=== PATIENT | male | born 1935 | race Caucasian/White ===

== ENCOUNTER → 2016-12-22 | Outpatient (CLI) | payer OTHER | LOC: KOH-I 09:55 | DX: M25.562 Pain in left knee (principal); M17.12 Unilateral primary osteoarthritis, left knee | CPT/HCPCS: 73564 ==

== ENCOUNTER → 2020-10-28 | Outpatient (CLI) | payer OTHER | LOC: HEART 5 10-02 14:00 | DX: I25.10 Atherosclerotic heart disease of native coronary artery without angina pectoris (principal); I08.8 Other rheumatic multiple valve diseases; R93.1 Abnormal findings on diagnostic imaging of heart and coronary circulation | CPT/HCPCS: 93306 ==

== ENCOUNTER 2021-04-05 08:49 | Emergency (ER) | payer OTHER ==
[2021-04-05 09:10] LABS: HEMOGLOBIN 16.4 gm/dl (14.0-17.5); RED BLOOD COUNT 5.26 M/UL (4.20-5.50); WHITE BLOOD COUNT 5.7 K/UL (4.5-11.0)
[2021-04-05 09:55] LABS: BUN/CREATININE RATIO 25 (0-10)
== END 2021-04-05 13:32 | disposition short-term general hospital (02) ==
LOC: ER1 08:49
PROVIDERS: Student in an Organized Health Care Education/Training Program
DX: I63.231 Cerebral infarction due to unspecified occlusion or stenosis of right carotid arteries (principal); E11.9 Type 2 diabetes mellitus without complications; R53.1 Weakness; Z20.822 Contact with and (suspected) exposure to COVID-19; M19.90 Unspecified osteoarthritis, unspecified site
CPT/HCPCS: 70450; 70496; 70498; 71045; 80053; 81001; 82550; 82553; 83690; 83735; 83874; 84100; 84484; 85025; 85610; 85730; 93005; 96374; 96375; 99285; J2997; Q9967; U0002

== ENCOUNTER → 2021-06-19 | Outpatient (CLI) | payer OTHER ==
[~2021-06-19] MED LIST: ALPRAZOLAM0.5 MG PO; ASPIRIN81 MG PO; ATORVASTATIN CA40 MG PO; AUGMENTIN 875-1 EACH PO; CLOPIDOGREL75 MG PO; FUROSEMIDE40 MG PO; GABAPENTIN300 MG PO; HAWTHORN BERRI565 MG PO; HYDROXYZINE PAM25 MG PO; KLOR-CON M2020 MEQ PO; LANTUS SOL100 UNIT/1 SQ; METOPROLOL TART50 MG PO; MONTELUKAST SOD10 MG PO; TRAMADOL HCL50 MG PO; TURMERIC PO; VOLTAREN ARTHRI20 GM TP
== END ==
LOC: RAD 08:30
DX: I69.391 Dysphagia following cerebral infarction (principal); R13.10 Dysphagia, unspecified
CPT/HCPCS: 74230; 92611-GN

== ENCOUNTER 2021-06-30 06:52 | Inpatient (IN) | payer OTHER ==
[~2021-06-30] VITALS: Ht 175.3 cm; Wt 76.2 kg
[~2021-06-30 06:52] MED LIST changes: -ALPRAZOLAM0.5 MG PO; -ASPIRIN81 MG PO; -ATORVASTATIN CA40 MG PO; -CLOPIDOGREL75 MG PO; -FUROSEMIDE40 MG PO; -GABAPENTIN300 MG PO; -HAWTHORN BERRI565 MG PO; -HYDROXYZINE PAM25 MG PO; -KLOR-CON M2020 MEQ PO; -LANTUS SOL100 UNIT/1 SQ; -METOPROLOL TART50 MG PO; -MONTELUKAST SOD10 MG PO; -TRAMADOL HCL50 MG PO; -TURMERIC PO; -VOLTAREN ARTHRI20 GM TP
[2021-06-30 08:06] LABS: HEMOGLOBIN 17.3 gm/dl (14.0-17.5); RED BLOOD COUNT 6.37 M/UL (4.20-5.50)
[2021-06-30 08:07] LABS: WHITE BLOOD COUNT 32.9 K/UL (4.5-11.0)
[2021-06-30 08:43] LABS: BUN/CREATININE RATIO 36 (0-10)
[2021-06-30] MEDS ORDERED: LANTUS SOL100 UNIT/1 SQ (13:34)
[2021-06-30] MEDS ORDERED: VOLTAREN ARTHRI20 GM TP (13:34)
[2021-06-30] MEDS ORDERED: MONTELUKAST SOD10 MG PO (13:35)
[2021-06-30] MEDS ORDERED: GABAPENTIN300 MG PO (13:36)
[2021-06-30] MEDS ORDERED: ALPRAZOLAM0.5 MG PO (13:36)
[2021-06-30] MEDS ORDERED: METOPROLOL TART50 MG PO (13:36)
[2021-06-30] MEDS ORDERED: CLOPIDOGREL75 MG PO (13:37)
[2021-06-30] MEDS ORDERED: KLOR-CON M2020 MEQ PO (13:37)
[2021-06-30] MEDS ORDERED: ATORVASTATIN CA40 MG PO (13:37)
[2021-06-30] MEDS ORDERED: FUROSEMIDE40 MG PO (13:38)
[2021-06-30] MEDS ORDERED: TRAMADOL HCL50 MG PO (13:38)
[2021-06-30] MEDS ORDERED: HYDROXYZINE PAM25 MG PO (13:39)
[2021-06-30] MEDS ORDERED: HAWTHORN BERRI565 MG PO (13:39)
[2021-06-30] MEDS ORDERED: ASPIRIN81 MG PO (13:39)
[2021-06-30] MEDS ORDERED: TURMERIC PO (13:41)
[2021-07-01 03:32] LABS: HEMOGLOBIN 14.5 gm/dl (14.0-17.5); RED BLOOD COUNT 5.03 M/UL (4.20-5.50); WHITE BLOOD COUNT 32.9 K/UL (4.5-11.0)
[2021-07-01 03:45] LABS: BUN/CREATININE RATIO 37 (0-10)
[2021-07-02 03:00] LABS: RED BLOOD COUNT 4.55 M/UL (4.20-5.50)
[2021-07-02 03:08] LABS: WHITE BLOOD COUNT 23.8 K/UL (4.5-11.0)
[2021-07-02 03:25] LABS: BUN/CREATININE RATIO 43 (0-10)
[2021-07-03 03:41] LABS: HEMOGLOBIN 13.4 gm/dl (14.0-17.5); RED BLOOD COUNT 4.78 M/UL (4.20-5.50)
[2021-07-03 03:42] LABS: WHITE BLOOD COUNT 14.5 K/UL (4.5-11.0)
[2021-07-03 04:09] LABS: BUN/CREATININE RATIO 35 (0-10)
[2021-07-04 02:53] LABS: HEMOGLOBIN 13.3 gm/dl (14.0-17.5); RED BLOOD COUNT 4.73 M/UL (4.20-5.50)
[2021-07-04 02:56] LABS: WHITE BLOOD COUNT 10.1 K/UL (4.5-11.0)
[2021-07-04 03:13] LABS: BUN/CREATININE RATIO 33 (0-10)
[2021-07-05 03:51] LABS: HEMOGLOBIN 12.2 gm/dl (14.0-17.5); RED BLOOD COUNT 4.31 M/UL (4.20-5.50); WHITE BLOOD COUNT 11.6 K/UL (4.5-11.0)
[2021-07-05 04:17] LABS: BUN/CREATININE RATIO 34 (0-10)
[2021-07-06 04:00] LABS: HEMOGLOBIN 12.6 gm/dl (14.0-17.5); RED BLOOD COUNT 4.48 M/UL (4.20-5.50)
[2021-07-06 04:08] LABS: WHITE BLOOD COUNT 8.5 K/UL (4.5-11.0)
[2021-07-06 04:31] LABS: BUN/CREATININE RATIO 30 (0-10)
[2021-07-07 07:08] LABS: HEMOGLOBIN 12.6 gm/dl (14.0-17.5); RED BLOOD COUNT 4.54 M/UL (4.20-5.50); WHITE BLOOD COUNT 4.5 K/UL (4.5-11.0)
[2021-07-07 07:10] LABS: BUN/CREATININE RATIO 27 (0-10)
[2021-07-08 04:35] LABS: BUN/CREATININE RATIO 26 (0-10)
[2021-07-08] MEDS ORDERED: METOPROLOL TART50 MG PO (13:20)
[2021-07-09 06:14] LABS: HEMOGLOBIN 14.3 gm/dl (14.0-17.5); RED BLOOD COUNT 4.99 M/UL (4.20-5.50)
[2021-07-09 06:19] LABS: WHITE BLOOD COUNT 9.5 K/UL (4.5-11.0)
[2021-07-09 06:35] LABS: BUN/CREATININE RATIO 28 (0-10)
--- NOTE | 2021-07-09 10:25 | NUR ---
PATIENT HAS WET COUGH AND LUNG SOUNDS A BIT "JUNKY" AND O2 SATS HAVE BEEN IN THE HIGH 80'S. PROVIDER WAS NOTIFIED AND ORDERED ROBITUSSIN, 2L O2 NASAL CANULA, DUONEBS Q6 PRN. PLACED O2 ON PATIENT. WILL CONTINUE TO MONITOR.
[2021-07-10 07:26] LABS: BUN/CREATININE RATIO 26 (0-10)
--- NOTE | 2021-07-11 00:46 | NUR ---
PATIENT SAT IN MID TO HIGH 80'S ON 7L NC NOTIFIED PROVIDER, PUT ORDERES IN FOR ABG'S. ABG RESULTED IN PATIENT BEING PLACED ON AIRVO AT 50L AND 85%. COVID SWAB WAS ABTAINED AWAITING RESULTS FROM LAB. WILL CONTINUE TO FOLLOW UP.
--- NOTE | 2021-07-11 01:06 | NUR ---
PATIENT COVID SWAB RESULTS ARE POSITIVE
[2021-07-11 07:44] LABS: HEMOGLOBIN 13.3 gm/dl (14.0-17.5); RED BLOOD COUNT 4.87 M/UL (4.20-5.50); WHITE BLOOD COUNT 9.7 K/UL (4.5-11.0)
[2021-07-11 07:55] LABS: BUN/CREATININE RATIO 29 (0-10)
[2021-07-12 05:49] LABS: HEMOGLOBIN 13.7 gm/dl (14.0-17.5); RED BLOOD COUNT 4.93 M/UL (4.20-5.50); WHITE BLOOD COUNT 4.6 K/UL (4.5-11.0)
[2021-07-12 09:14] LABS: BUN/CREATININE RATIO 40 (0-10)
--- NOTE | 2021-07-13 02:42 | NUR ---
patient continuously removes AIRVO, education completed on the importance of oxygenation and keeping AIRVO in place, patient verbalizes understanding
--- NOTE | 2021-07-13 03:21 | NUR ---
PT CONTINUES TO REMOVE AIRVO, EDUCATED PATIENT ON THE IMPORTANCE OF LEAVING AIRVO FOR OXYGEN, PATIENT VERBALIZES UNDERSTANDING
--- NOTE | 2021-07-13 04:41 | NUR ---
PATIENT CONTINUES TO REMOVE AIRVO, EDUCATED PATIENT ON THE IMPORTANCE OF NOT REMOVING AIRVO, PATIENT VERBALIZES UNDERSTANDING
[2021-07-13 05:15] LABS: RED BLOOD COUNT 4.83 M/UL (4.20-5.50)
[2021-07-13 05:21] LABS: WHITE BLOOD COUNT 6.7 K/UL (4.5-11.0)
[2021-07-13 05:53] LABS: BUN/CREATININE RATIO 57 (0-10)
[2021-07-14 05:12] LABS: HEMOGLOBIN 12.4 gm/dl (14.0-17.5); RED BLOOD COUNT 4.43 M/UL (4.20-5.50)
[2021-07-14 05:15] LABS: WHITE BLOOD COUNT 1.6 K/UL (4.5-11.0)
[2021-07-14 05:33] LABS: BUN/CREATININE RATIO 62 (0-10)
--- NOTE | 2021-07-14 13:57 | NUR ---
07/14/21 1400 - OT SHOWED UP TO HELP MR. PULIDO. HOWEVER, I TOLD THEM THAT WE NEEDED TO WAIT A LITTLE BIT OR TRY AGAIN IN THE MORNING DUE TO TACHYCARDIA RELATED TO ANXIETY AND STOMACH PAIN. OT SAID THEY DID NOT HAVE TIME TO COME BACK AND THAT IT WOULD BE IN THE MORNING. SEE eMAR FOR PRN XANX FOR THE ANXIETY
--- NOTE | 2021-07-14 18:03 | NUR ---
PT HAS BEEN ON HFNC 6L FOR THE PAST FEW HOURS WITH AN SPO2 OF 93-96%. PT DROPPED TO 75% AT 1802 AND WAS NOT COMING BACK UP ON HFNC EVEN AFTER CHANGING THE PULSE OX. PLACED PT BACK ON AIRVO AT 65%. PT STABLE WITH AN SPO2 OF 95%.
[2021-07-15 05:41] LABS: HEMOGLOBIN 12.1 gm/dl (14.0-17.5); RED BLOOD COUNT 4.4 M/UL (4.20-5.50); WHITE BLOOD COUNT 1.8 K/UL (4.5-11.0)
[2021-07-15 06:41] LABS: BUN/CREATININE RATIO 71 (0-10)
[2021-07-16 05:31] LABS: HEMOGLOBIN 13.4 gm/dl (14.0-17.5); RED BLOOD COUNT 4.82 M/UL (4.20-5.50)
[2021-07-16 05:34] LABS: WHITE BLOOD COUNT 3.2 K/UL (4.5-11.0)
[2021-07-16 05:51] LABS: BUN/CREATININE RATIO 53 (0-10)
[2021-07-17 06:20] LABS: HEMOGLOBIN 12.7 gm/dl (14.0-17.5); RED BLOOD COUNT 4.56 M/UL (4.20-5.50)
[2021-07-17 06:21] LABS: WHITE BLOOD COUNT 13.7 K/UL (4.5-11.0)
[2021-07-17 08:17] LABS: BUN/CREATININE RATIO 72 (0-10)
[2021-07-18 05:52] LABS: BUN/CREATININE RATIO 87 (0-10)
== END 2021-07-18 16:16 | disposition expired | DRG 853 ==
LOC: ER1 06:52 → PROG CARE 12:28 → CDU 12:28 → M/S 12:28 → CCU 12:28 → PROG CARE 14:06 → M/S 07-06 13:14 → CCU 07-11 15:23
PROVIDERS: Internal Medicine; Internal Medicine Infectious Disease; Nurse Practitioner; Surgery; ADMIT Internal Medicine
PROC: 0FT44ZZ Resection of Gallbladder, Percutaneous Endoscopic Approach (ICD-10-PCS; principal; 2021-06-30 20:10)
PROC: 3E0333Z Introduction of Anti-inflammatory into Peripheral Vein, Percutaneous Approach (ICD-10-PCS; 2021-07-10)
PROC: 8E0ZXY6 Isolation (ICD-10-PCS; 2021-07-11)
PROC: XW033E5 Introduction of Remdesivir Anti-infective into Peripheral Vein, Percutaneous Approach, New Technology Group 5 (ICD-10-PCS; 2021-07-11)
PROC: XW033G5 Introduction of Sarilumab into Peripheral Vein, Percutaneous Approach, New Technology Group 5 (ICD-10-PCS; 2021-07-11)
PROC: XW0DXM6 Introduction of Baricitinib into Mouth and Pharynx, External Approach, New Technology Group 6 (ICD-10-PCS; 2021-07-13)
PROC: 5A0935A Assistance with Respiratory Ventilation, Less than 24 Consecutive Hours, High Flow/Velocity Cannula (ICD-10-PCS; 2021-07-14)
PROC: 5A09357 Assistance with Respiratory Ventilation, Less than 24 Consecutive Hours, Continuous Positive Airway Pressure (ICD-10-PCS; 2021-07-16)
PROC: 5A0935A Assistance with Respiratory Ventilation, Less than 24 Consecutive Hours, High Flow/Velocity Cannula (ICD-10-PCS; 2021-07-16)
DX: A41.9 Sepsis, unspecified organism (principal); U07.1 COVID-19; J12.82 Pneumonia due to coronavirus disease 2019; I50.33 Acute on chronic diastolic (congestive) heart failure; J15.9 Unspecified bacterial pneumonia; R65.21 Severe sepsis with septic shock; J80 Acute respiratory distress syndrome; K81.0 Acute cholecystitis; D68.9 Coagulation defect, unspecified; R64 Cachexia; I47.1 Supraventricular tachycardia; G93.49 Other encephalopathy; J20.9 Acute bronchitis, unspecified; E83.42 Hypomagnesemia; I25.10 Atherosclerotic heart disease of native coronary artery without angina pectoris; F41.9 Anxiety disorder, unspecified; L53.9 Erythematous condition, unspecified; E87.6 Hypokalemia; E11.40 Type 2 diabetes mellitus with diabetic neuropathy, unspecified; J30.9 Allergic rhinitis, unspecified; M19.91 Primary osteoarthritis, unspecified site; E78.5 Hyperlipidemia, unspecified; I11.0 Hypertensive heart disease with heart failure; M17.0 Bilateral primary osteoarthritis of knee; L89.152 Pressure ulcer of sacral region, stage 2; E11.649 Type 2 diabetes mellitus with hypoglycemia without coma; R13.10 Dysphagia, unspecified; R53.81 Other malaise; Z66 Do not resuscitate; K82.8 Other specified diseases of gallbladder; E86.0 Dehydration; Z23 Encounter for immunization; I25.2 Old myocardial infarction; Z86.718 Personal history of other venous thrombosis and embolism; Z79.82 Long term (current) use of aspirin; Z79.899 Other long term (current) drug therapy; Z90.49 Acquired absence of other specified parts of digestive tract; Z98.890 Other specified postprocedural states; Z87.891 Personal history of nicotine dependence; Z82.49 Family history of ischemic heart disease and other diseases of the circulatory system; Z68.24 Body mass index [BMI] 24.0-24.9, adult; I69.991 Dysphagia following unspecified cerebrovascular disease
CPT/HCPCS: ECHO; 36415; 36600; 70450; 71045; 80048; 80053; 80076; 81001; 82550; 82553; 82728; 82803; 82962; 83036; 83605; 83615; 83690; 83735; 83874; 83880; 84132; 84484; 85025; 85027; 85610; 85730; 86140; 87040; 92610; 93005; 93306; 94003; 94640; 94660; 94664; 94760; 96374; 96375; 97110; 97110-GP-CQ; 97161; 97164; 97166; 97168; 97530; 97530-GP-CQ; 99285; A6212; C9113; J0692; J1100; J1200; J1335; J1650; J1940; J2001; J2060; J2185; J2270; J2370; J2405; J2550; J2710; J2930; J3010; J3370; J7030; J7040; J7050; J7070; J7120; P9047; Q0177; Q9965; U0002